=== PATIENT | male | born 1980 | race Caucasian/White ===

== ENCOUNTER 2018-03-23 13:42 | Emergency (ER) | payer SELFPAY ==
--- NOTE | 2018-03-23 13:46 | EDM.PDOCBH ---
ED HPI GENERAL MEDICAL PROBLEM - General Chief Complaint: Behavioral/Psych Stated Complaint: ANXIETY Time Seen by Provider: 03/23/18 13:46 Source of Information: Reports: Patient History Limitations: Reports: No Limitations - History of Present Illness INITIAL COMMENTS - FREE TEXT/NARRATIVE: HISTORY AND PHYSICAL: History of present illness: He shouldn't is a 37 showed male who presents to the emergency room with complaints of anxiety. He states he woke up this morning feeling on edge and new she was going to struggle with anxiety today. He had to work this morning and states that the hot grill and work environment only increased his anxiety. [place], stating he has multiple stressors related to this move. He normally self medicates with marijuana but has not had any in the past 2-3 days. Patient did call an ambulance to be transported here to our emergency department for evaluation of this. He states "I just want to get something for my employer so I don't think I'm on drugs". The reports he feels better since arrival and feels like he is able to calm down. Review of systems: As per history of present illness and below otherwise all systems reviewed and negative. Past medical history: As per history of present illness and as reviewed below otherwise noncontributory. Surgical history: As per history of present illness and as reviewed below otherwise noncontributory. Social history: No reported history of drug or alcohol abuse. Family history: As per history of present illness and as reviewed below otherwise noncontributory. Physical exam: General: Well-developed and well-nourished 37-year-old male. Alert and oriented. Fidgeting, appears anxious, sporadic with his speech. Nontoxic appearing and in no acute distress. HEENT: Atraumatic, normocephalic, pupils equal and reactive bilaterally, negative for conjunctival pallor or scleral icterus, mucous membranes moist, throat clear, neck supple, nontender, trachea midline. No drooling or trismus noted. No meningeal signs Lungs: Clear to auscultation, breath sounds equal bilaterally, chest nontender. Heart: S1S2, regular rate and rhythm without overt murmur Abdomen: Soft, nondistended, nontender. Negative for masses or hepatosplenomegaly. Negative for costovertebral tenderness. Pelvis: Stable nontender. Genitourinary: Deferred. Rectal: Deferred. Skin: Intact, warm, dry. No lesions or rashes noted. Extremities: Atraumatic, negative for cords or calf pain. Neurovascular unremarkable. Neuro: Awake, alert, oriented. Cranial nerves II through XII unremarkable. Cerebellum unremarkable. Motor and sensory unremarkable throughout. Exam nonfocal. Notes: Patient states that he had seen a mental health provider for his anxiety back in . During that time he had tried multiple medications, all of which seemed to not help his symptoms. Since then he has been self-medicating with marijuana routinely. Patient reports that he does feel "better". We did discuss the options of doing routine lab work at this time. He declines. He states that suddenly moved here and currently does not have a primary care provider. We discussed the importance of close follow-up as I think he would benefit from counseling and establishing care with a primary care provider for possible medication needs. Diagnostics: Declines Therapeutics: Ativan PO Impression: Anxiety Plan: 1. No driving for the rest of the day. 2. Please establish care with a primary care provider for further evaluation and management of your symptoms. May benefit from seeing someone at [facility] 3. Return to the ED as needed as discussed. Definitive disposition and diagnosis as appropriate pending reevaluation and review of above. Onset: Gradual Duration: Chronic Location: Reports: Generalized Left 5-Little finger Pain Score (Numeric/FACES): 2 - Related Data Allergies Allergy/AdvReac Type Severity Reaction Status Date / Time bupropion [From Wellbutrin] Allergy Other Verified 03/23/18 13:51 buspirone Allergy Anxiety Verified 03/23/18 13:52 oxycodone Allergy Vomiting Verified 03/23/18 13:51 Home Meds: Home Meds . [No Known Home Meds] 03/23/18 [History] ED ROS GENERAL - Review of Systems Review Of Systems: ROS reveals no pertinent complaints other than HPI. ED EXAM, BEHAVIORAL HEALTH - Physical Exam Exam: See Below (See dictation) COURSE, BEHAVIORAL HEALTH COMP - Course Vital Signs: Last Vital Signs Temp 97.8 F 03/23/18 13:44 Pulse 105 H 03/23/18 13:44 Resp 20 03/23/18 13:44 BP 153/91 H 03/23/18 13:44 Pulse Ox 98 03/23/18 13:44 Orders, Labs, Meds: Medications Discontinued Medications Generic Name Dose Route Start Last Admin Trade Name Guille PRN Reason Stop Dose Admin Lorazepam 0.5 mg 03/23/18 14:13 03/23/18 14:20 Ativan PO 03/23/18 14:14 0.5 mg ONETIME ONE Administration Departure - Departure Time of Disposition: 14:29 Disposition: Home, Self-Care 01 Clinical Impression: Anxiety - Discharge Information Instructions: Panic Attack, [id number] Forms: ED Department Discharge Additional Instructions: The following information is given to patients seen in the emergency department who are being discharged to home. This information is to outline your options for follow-up care. We provide all patients seen in our emergency department with a follow-up referral. The need for follow-up, as well as the timing and circumstances, are variable depending upon the specifics of your emergency department visit. If you don't have a primary care physician on staff, we will provide you with a referral. We always advise you to contact your personal physician following an emergency department visit to inform them of the circumstance of the visit and for follow-up with them and/or the need for any referrals to a consulting specialist. The emergency department will also refer you to a specialist when appropriate. This referral assures that you have the opportunity for follow-up care with a specialist. All of these measure are taken in an effort to provide you with optimal care, which includes your follow-up. Under all circumstances we always encourage you to contact your private physician who remains a resource for coordinating your care. When calling for follow-up care, please make the office aware that this follow-up is from your recent emergency room visit. If for any reason you are refused follow-up, please contact the [facility] Emergency Department at and asked to speak to the emergency department charge nurse. [facility] [address] [place] [id number] 1. No driving for the rest of the day. 2. Please establish care with a primary care provider for further evaluation and management of your symptoms. May benefit from seeing someone at [facility] 3. Return to the ED as needed as discussed.
[2018-03-23] MEDS ORDERED: LORazepam 0.5 MG Tab PO ONE (14:13)
== END 2018-03-23 15:00 | disposition home or self-care (01) ==
LOC: MW.ED 13:42
DX: F41.9 Anxiety disorder, unspecified (principal); Z88.8 Allergy status to other drugs, medicaments and biological substances
CPT/HCPCS: 99283; A9270